=== PATIENT | male | born 1970 | race African-American/Black ===

== ENCOUNTER 2019-05-13 02:37 | Emergency (ER) | payer SELFPAY ==
[2019-05-13 04:03] LABS: ABSOLUTE EOSINOPHILS # (AUTO) 0.2 10^3/uL (0.0-0.6); ABSOLUTE LYMPHOCYTES (AUTO) 0.7 10^3/uL (0.5-4.7); ABSOLUTE MONOCYTES (AUTO) 0.3 10^3/uL (0.1-1.4); ABSOLUTE NEUT (AUTO) 2.9 10^3/uL (1.7-8.2); BASOPHILS % (AUTO) 0.4 % (0-2); EOSINOPHILS % (AUTO) 4.2 % (0-6); HEMATOCRIT 30.2 % (37.9-51.0); LYMPHOCYTES % (AUTO) 16.8 % (13-45); MEAN CORPUSCULAR VOLUME 100 fl (80-97); MONOCYTES % (AUTO) 6.5 % (3-13); PLATELET COUNT 120 10^3/uL (150-450); RED BLOOD COUNT 3.02 10^6/uL (4.35-5.55); RED CELL DISTRIBUTION WIDTH 15.4 % (11.5-14.0); SEGMENTED NEUTROPHILS % (AUTO) 72.1 % (42-78); TOTAL CELLS COUNTED % (AUTO) 100 %
[2019-05-13 04:14] LABS: ALBUMIN 4.7 g/dL (3.5-5.0); ALKALINE PHOSPHATASE 43 U/L (38-126); ASPARTATE AMINO TRANSFERASE 17 U/L (17-59); BLOOD UREA NITROGEN 119 mg/dL (7-20); GLUCOSE 98 mg/dL (75-110); TOTAL PROTEIN 7.6 g/dL (6.3-8.2)
[2019-05-13 04:26] LABS: BILIRUBIN,DIRECT 0.6 mg/dL (0.0-0.4); BILIRUBIN,TOTAL 0.7 mg/dL (0.2-1.3); CARBON DIOXIDE 15 mmol/L (22-30); CHLORIDE 104 mmol/L (98-107); POTASSIUM 5.6 mmol/L (3.6-5.0)
[2019-05-13 04:34] LABS: ANION GAP 25 (5-19)
[2019-05-13 04:37] LABS: CALCIUM 5.9 mg/dL (8.4-10.2)
--- NOTE | 2019-05-13 04:57 | RADIOLOGY REPORT (SQ) ---
EXAM DESCRIPTION: XR CHEST 1 VIEW COMPLETED DATE/TME: 05/13/2019 03:06 CLINICAL HISTORY: 48 years, Male, SOB COMPARISON: None. NUMBER OF VIEWS: 1 TECHNIQUE: Portable chest LIMITATIONS: None. FINDINGS: Cardiomegaly. Mild prominence of the perihilar interstitium as well as minimal perihilar infiltrates. Findings likely reflect pulmonary edema. No pneumothorax. IMPRESSION: Cardiomegaly with findings suggestive of pulmonary edema copyright 2010 [employer]- All Rights Reserved
[2019-05-13 05:33] LABS: APPEARANCE,URINE CLEAR; BILIRUBIN,URINE NEGATIVE (NEGATIVE); COLOR,URINE STRAW; GLUCOSE, URINE 50 mg/dL (NEGATIVE); KETONES,URINE NEGATIVE (NEGATIVE); LEUKOCYTE ESTERASE,URINE MODERATE (NEGATIVE); NITRITE,URINE NEGATIVE (NEGATIVE); PROTEIN,URINE >=500 mg/dL (NEGATIVE); URINE SPECIFIC GRAVITY 1.009; UROBILINOGEN,URINE NEGATIVE mg/dL (<2.0)
[2019-05-13] MEDS ORDERED: INSULIN REG, HUMAN 100 UNIT/ML 3 ML VIAL (PYX) IV ONE (06:04)
[2019-05-13] MEDS ORDERED: CALCIUM GLUCONATE 1000 MG/10 ML INJ IV ONE (06:04)
[2019-05-13] MEDS ORDERED: DEXTROSE 50%-WATER 25 GM/50 ML DISP.SYRIN IV ONE (06:05)
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
[2019-05-13 06:45] LABS: PHOSPHORUS 8.5 mg/dL (2.5-4.5)
[2019-05-13] MEDS ORDERED: SEVELAMER HCL 800 MG TABLET PO ONE (07:43)
[2019-05-13 10:17] VITALS: BP 160/113
--- NOTE | 2019-05-13 19:31 | EKG REPORT ---
SEVERITY:- ABNORMAL ECG - SINUS RHYTHM LEFT ATRIAL ABNORMALITY PROBABLE LVH WITH SECONDARY REPOL ABNRM PROLONGED QT INTERVAL : Confirmed by: Lavern Daily MD 13-May-2019 19:30:26
== END 2019-05-13 09:17 | disposition left against medical advice (07) ==
LOC: ER 02:37
DX: I12.0 Hypertensive chronic kidney disease with stage 5 chronic kidney disease or end stage renal disease (principal); N18.6 End stage renal disease; E87.5 Hyperkalemia; E83.52 Hypercalcemia; E83.39 Other disorders of phosphorus metabolism; J81.0 Acute pulmonary edema; R06.02 Shortness of breath; Z99.2 Dependence on renal dialysis
CPT/HCPCS: 93005; 99285; 96375; 96365; 96366; 36415; 87086; 83735; 84100; 85025; 80053; 81001; 71045; 93010; J0610; J3490 ×2; J1815